=== PATIENT | female | born 2000 | race Caucasian/White ===

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

== ENCOUNTER 2022-04-08 21:10 | Emergency (ER) | payer OTHER ==
[2022-04-08 21:30] VITALS: BP 122/82; PULSE 100; RESP 18; TEMP 98.1; BMI 25.7
[2022-04-08] MEDS ORDERED: ACETAMINOPHEN 325 MG TABLET (FP) PO ONE (23:05)
[2022-04-08] MEDS ORDERED: ACETAMINOPHEN 325 MG TABLET (FP) ONE (23:32)
== END 2022-04-09 01:00 | disposition home or self-care (01) ==
LOC: JER 21:10
DX: J06.9 Acute upper respiratory infection, unspecified (principal)
CPT/HCPCS: 0241U-QW; 93005; 93010; 99284-25